=== PATIENT | female | born 1975 | race Caucasian/White ===

== ENCOUNTER → 2020-12-17 10:21 | Outpatient (CLI) | payer OTHER, SELFPAY ==
--- NOTE | 2020-12-17 10:21 | US_ITS ---
PROCEDURE: US TRANSVAGINAL CLINICAL INDICATION: DUB COMPARISON: No exams were available for comparison FINDINGS: UTERUS: 11cm x 6cmx 5cm with a combined endometrial thickness of 16.8mm. There are numerous prominent nabothian cysts. The endometrium is thickened at 1.7 cm. Fibroid projects off the posterior aspect the fundus of the uterus measuring 3 cm. LEFT OVARY: [id number] with a volume of 37.2ml. There are 2 left ovarian cyst measuring 3.7 x 2.7 cm and 2.4 x 2 cm. The largest of the cyst has a small lateral septation on the right RIGHT OVARY: [id number] with a volume of 3.8ml. No cul-de-sac fluid. IMPRESSION: Bulky uterus with uterine fibroid and thickened endometrium with multiple nabothian cyst. Enlarged left ovary with 2 cysts as described above. Consider 8 week follow-up to confirm resolution or stability. Dictated by: Indra Rendon MD 12/17/2020 16:46 Indra Rendon MD in [place] 12/17/2020 16:46
== END ==
PROVIDERS: PCP Obstetrics & Gynecology; Visit Provider Obstetrics & Gynecology
DX: N93.8 Other specified abnormal uterine and vaginal bleeding (principal)
CPT/HCPCS: 76830

== ENCOUNTER → 2021-01-26 07:22 | Outpatient (CLI) | payer OTHER, SELFPAY ==
[2021-01-26 07:39] LABS: Basophils # 0.1 K/mm3 (0-0.2); Basophils % 0.9 % (0.1-2.0); Eosinophils # 0.1 K/mm3 (0.0-0.4); Eosinophils % 1.8 % (0.1-12.0); Hematocrit 32.5 % (37.0-47.0); Hemoglobin 9.3 g/dL (12.2-16.2); Lymphocytes # 2.1 K/mm3 (0.7-4.5); Lymphocytes % 27.1 % (10-50); Mean Corpuscular HGB Conc 28.8 g/dL (31.8-35.4); Mean Corpuscular Hemoglobin 21.2 pg (27.0-31.2); Mean Corpuscular Volume 73.7 fl (81-99); Mean Platelet Volume 7.9 fl (7.4-10.4); Monocytes # 0.4 K/mm3 (0.1-1.0); Monocytes % 5.5 % (1.7-9.3); Neutrophils % 64.7 % (37.0-80.0); Platelet Count 444 K/mm3 (142-424); Red Blood Count 4.41 M/mm3 (4.20-5.40); Red Cell Distribution Width 15.8 % (11.5-17.5); White Blood Count 7.7 K/mm3 (4.8-10.8)
[2021-01-26 07:43] LABS: Urine Pregnancy, HCG Qual. Negative (Negative)
[2021-01-26 08:32] LABS: Chloride 102 mmol/L (98-107)
[2021-01-26 08:33] LABS: Potassium 4.1 mmoL/L (3.5-5.1); Sodium 137 mmol/L (136-145)
[2021-01-26 08:35] LABS: Alanine Aminotransferase 46 U/L (12-78); Alkaline Phosphatase 76 U/L (38-126); Anion Gap 14.1 mEq/L (5-15); Aspartate Amino Transferase 50 U/L (14-36); Bilirubin,Total 0.8 mg/dl (0.2-1.3); Blood Urea Nitrogen 11 mg/dl (7-17); Carbon Dioxide 25 mmol/L (22.0-30.0); Estimated Glomerular Filt Rate 107 ml/min (>60); GFR (African American) 130 ML/MIN (>60)
[2021-01-26 08:36] LABS: Albumin/Globulin Ratio 1.4 (1.1-1.8); Globulin 2.9 g/dL (1.3-3.2); Glucose 101 mg/dl (74-100); Total Protein,Serum 6.9 g/dl (6.3-8.2)
== END ==
PROVIDERS: Visit Provider Obstetrics & Gynecology
DX: Z01.812 Encounter for preprocedural laboratory examination (principal); Z11.52 Encounter for screening for COVID-19; R93.89 Abnormal findings on diagnostic imaging of other specified body structures
CPT/HCPCS: 36415; 80053; 81025; 85025; C9803; U0003; U0005

== ENCOUNTER 2021-01-27 11:09 | Inpatient (IN) | payer OTHER, SELFPAY ==
[2021-01-26 15:25] VITALS: BMI 35.5
[2021-01-27] VITALS (22 sets, daily range): BP systolic 110–143; BP diastolic 61–83; PULSE 66–102; RESP 16–20; TEMP 6.1–43; O2SAT 93–100
--- NOTE | 2021-01-27 06:57 | HMH.ANESCL ---
[facility] Anesthesia Checklist - Patient Identification Patient Identification: Arm Band - Structural Data Admitted From: Home Planned Operative Procedure/s: VICIKE with BSO Consent for Planned Operative Procedure(s) Verified: Yes - NPO Status Verified Time NPO: 00:00 - Additional verifications Anesthesia Reactions: Yes (vomitting) Hx Blood Transfusions: No Blood Transfusion Reaction: No - Airway Assessment C-Spine Mobility Assessed: Yes TMJ Mobility Assessed: Yes Dentition: Good Dentition - Neurological Assessment Level of Consciousness: Awake Hx Seizures: No Numbness or tingling in extremities: No - Anesthesia Plan Anesthesia Risk discussed: Yes Anesthesia Plan: Verified ASA Class: II Anesthesia Type: General [facility] History I have reviewed the patient's past medical history: Yes Medical History: Reports:: Gastroesophageal Reflux Disease(GERD) Denies:: Cancer, Diabetes Mellitus Type 1, Diabetes Mellitus Type 2, Internal Pacemaker, MRSA, Seizures *Have you ever received a pneumonia vaccine?: No *Have you received a flu vaccine this season?: Yes (2019) Other Medical History: Denies: Blood Transfusion Reaction Anesthesia experience/problems:: N/V Other Surgeries: Yes: Tubal Ligation. No: Pacemaker Amputation: No Fractures: No - *Social History Last grade of school completed: Some college Smoking Status: Never smoker Alcohol Intake: never Substance Use Type: denies use *Occupational Status:: employed Housing: house Household Members: spouse *Travel in the last 8 weeks: None Family Hx:: Cancer, Heart Attack, Diabetes, Hypertension, Thyroid Disorder
--- NOTE | 2021-01-27 07:48 | HMH.HP ---
*Admission Date: 01/27/21 *Chief complaint: scheduled hysterectomy *History of present illness: 45 yo , s/p tubal ligation dysfunctional, heavy and prolonged bleeding LMP 10/17-11/23 pelvic ultrasound 12/17/20: uterus bulky, [id number] ES 17mm posterior pedunculated fundal fibroid 3cm L ovary 5x4x3.5cm, 3.7x2.7cm cyst, 2.4x2cm cyst R ovary [id number] No free fluid Desires definitive surgical management of menorrhagia and uterine fibroid with hysterectomy Declines conservative medical management counseled for ovarian preservation if ovaries appear normal [facility] History I have reviewed the patient's past medical history: Yes Medical History: Reports:: Gastroesophageal Reflux Disease(GERD) Denies:: Cancer, Diabetes Mellitus Type 1, Diabetes Mellitus Type 2, Internal Pacemaker, MRSA, Seizures *Have you ever received a pneumonia vaccine?: No *Have you received a flu vaccine this season?: Yes (2019) Other Medical History: Reports: Anemia. Denies: Blood Transfusion Reaction Anesthesia experience/problems:: N/V Other Surgeries: Yes: Tubal Ligation. No: Pacemaker Amputation: No Fractures: No - *Social History Last grade of school completed: Some college Smoking Status: Never smoker Alcohol Intake: never Substance Use Type: denies use *Occupational Status:: employed Housing: house Household Members: spouse *Travel in the last 8 weeks: None Family Hx:: Cancer, Heart Attack, Diabetes, Hypertension, Thyroid Disorder Review of Systems - Review of Systems Review of systems:: pertinent systems reviewed and negative unless documented below - *Genitourinary Reports abnormal vaginal bleeding, Reports heavy periods, Reports pelvic pain Meds Home Medications Medication Instructions Recorded Confirmed Type Famotidine 10 mg PO DAILY 01/27/21 01/27/21 History Loratadine [Claritin] 10 mg PO DAILY 01/27/21 01/27/21 History Allergies Allergy/AdvReac Type Severity Reaction Status Date / Time No Known Allergies Allergy Verified 01/26/21 10:21 Exam Vital signs and Labs for Last 24 Hours: Temp Pulse Resp BP Pulse Ox 98.4 F 102 H 20 143/83 H 97 01/27/21 06:19 01/27/21 06:19 01/27/21 06:19 01/27/21 06:19 01/27/21 06:19 I & O for Last 24 hours: Intake & Output 01/24/21 01/25/21 01/26/21 01/27/21 11:59 11:59 11:59 11:59 Weight 227 lb - Constitutional no acute distress - *Routine HEENT Exam Head: Present: normocephalic Eye: Absent: scleral injection ENT: Present: mucous membranes moist - *Routine Neck Exam Present: supple. Absent: lymphadenopathy - *Routine Respiratory Exam Present: CTA bilaterally - *Routine Cardiovascular Exam Present: RRR - *Routine Abdominal Exam Present: soft, normoactive bowel sounds. Absent: tenderness - *Routine Rectal Exam Rectal:: deferred - *Routine Genitalia Exam Genitalia:: normal female - *Routine Extremities Exam Absent: cyanosis, clubbing, edema - *Routine Skin Exam Present: warm. Absent: rash - *Routine Neurological Exam Present: alert, oriented X3 Assessment and Plan (1) Heavy menstrual bleeding Status: Acute Category: Medical Code(s): N92.0 - Excessive and frequent menstruation with regular cycle (2) DUB (dysfunctional uterine bleeding) Status: Acute Category: Medical Code(s): N93.8 - Other specified abnormal uterine and vaginal bleeding (3) Bulky or enlarged uterus Status: Acute Category: Medical Code(s): N85.2 - Hypertrophy of uterus (4) Uterine fibroid Status: Acute Category: Medical Code(s): D25.9 - Leiomyoma of uterus, unspecified (5) Thickened endometrium Status: Acute Category: Medical Code(s): R93.89 - Abnormal findings on diagnostic imaging of other specified body structures (6) Anemia due to chronic blood loss Status: Acute Category: Medical Code(s): D50.0 - Iron deficiency anemia secondary to blood loss (chronic) (7) History of tubal ligation Status: Acute Category:
--- NOTE | 2021-01-27 10:27 | HMH.ANESI ---
[facility] Anesthesia Record Part I Intake, IV Amount: 1,800 Estimated blood loss (mL): 200 Urine output (mL): 300 Blood Pressure: 122/64 SaO2: 96 Pulse Rate: 66 Respiratory Rate: 16 Temperature: 97.7 F Patient is:: Drowsy, Stable Stable to PACU at:: 10:25
--- NOTE | 2021-01-27 10:54 | PC.NURSE ---
1049 Report received from Dina Lewis RN in PACU.
--- NOTE | 2021-01-27 11:20 | HMH.OPNOTE ---
Date of procedure: 01/27/21 Pre-op Diagnosis:: 1. Heavy Menstrual Bleeding 2. Dysfunctional Uterine Bleeding 3. Pelvic Pain 4. Enlarged/bulky uterus 5. Uterine Fibroids 6. Anemia secondary to chronic blood loss Post-op Diagnosis:: 1. Heavy Menstrual Bleeding 2. Dysfunctional Uterine Bleeding 3. Pelvic Pain 4. Enlarged/bulky uterus 5. Uterine Fibroids 6. Anemia secondary to chronic blood loss 7. Pelvic adhesions Procedure performed:: Abdominal supracervical hysterectomy Lysis of adhesions Surgeon:: Sarina Batista MD Air Pollution Control Engineer(s):: Sylvie Brower LEAD EMBEDDED SOFTWARE ENGINEER:: Chester Gonzáles Anesthesia: GETA Estimated blood loss (mL): 200 Operative findings:: grossly enlarged fibroid uterus normal appearing ovaries bilaterally normal appearing fallopian tubes bilaterally moderate dense pelvic adhesions Operative note:: The patient was taken to the operating room and general anesthesia was administered without difficulty. She was prepped and draped in the supine position. A Pfannenstiel skin incision was made approximately 2 cm above the pubic symphysis with a scalpel and carried down to the underlying layer of fascia. The fascia was incised in the midline and extended laterally sharply. The rectus muscles were sharply dissected off the fascia and in the midline. The peritoneum was turned and sharply, with good visualization of the underlying structures. The peritoneal incision was extended bluntly. A survey of the patient's pelvis and abdomen revealed a grossly enlarged fibroid uterus with pelvic adhesions attaching the small intestine to the posterior uterus. Moderate vesicouterine adhesions were also noted. The bowel could not be packed initially because of the uterine adhesions. Sharp and blunt dissection was carried out until the bowel was liberated from the posterior uterus. At this time, the patient was placed in Trendelenburg and a [place] retractor was placed in the abdomen; the bowel was packed with moist laparotomy sponges. A double tooth tenaculum was placed on the uterine fundus and the uterus was elevated out of the pelvis. No fibroids or other visible uterine lesions were noted. The round ligaments were identified and transected and suture-ligated. The anterior lip of the broad ligament was dissected medially on both sides and the bladder flap was created digitally. The posterior leaf of the broad ligament was dissected until the ureters were able to be identified on either side and noted to be free of the forthcoming adnexal pedicles. Infundibulopelvic ligaments were doubly clamped transected and suture ligated on either side, with excellent hemostasis noted. The uterine arteries were skeletonized on either side, and were clamped, transected and suture ligated with excellent hemostasis. The bladder flap was further bluntly dissected off the lower uterine segment with excellent hemostasis and without injury to the bladder. The cardinal and uterosacral ligaments were clamped transected and suture ligated on both sides, but dense bowel adhesions to the posterior lower uterus/cervix precluded safe removal of the cervix, and a decision was made to proceed with a supracervical hysterectomy. The uterus was amputated below the internal cervical os with cautery and the specimen sent for pathology. The pelvis was copiously irrigated with sterile water. The cervical stump was oversewn with 0-vicryl sutures, with excellent hemostasis. All pedicles were reexamined and remained hemostatic. All instruments were removed from the patient's abdomen. The peritoneum was closed with 2-0 Vicryl in a running fashion. The fascia was closed with 0 Vicryl in a running fashion. The subcutaneous fat was closed with 2-0 vicryl. The skin was closed with 2-0 stratafix. The patient tolerated the procedure well; sponge/lap/needle and instrument counts were correct ?2. She was taken to the recovery room awake in stable condition. Estimated bloo
--- NOTE | 2021-01-27 11:29 | PC.NURSE ---
1120 Pt more drowsy at VS check. SaO2 low 90s on room air. 2L NC initiated with SaO2 95-97%.
[2021-01-27 15:05] LABS: Microscopic,Cath URINE MICROSCOPIC (MICROSCOPIC)
[2021-01-27 15:24] LABS: Appearance,Urine/Cath CLEAR (Clear); Bilirubin,Cath Negative (Negative); Blood, Urine/Cath Negative (Negative); Color,Urine/Cath YELLOW (Yellow); Glucose,Urine/Cath (UA) Negative (Negative); Ketones,Urine/Cath Negative (Negative); Leukocyte Esterase,Cath Negative (Negative); Nitrate,Cath Negative (Negative); Protein,Urine/Cath Negative (Negative); Urobilinogen,Cath 0.2 EU/dl (0.2)
[2021-01-27 15:28] LABS: Hematocrit 28.3 % (37.0-47.0)
[2021-01-27 15:44] LABS: Bacteria,Urine/Cath TRACE /lpf
--- NOTE | 2021-01-27 16:18 | P.PN_ITS ---
[facility] Anesthesia Record Part II Discharge Time: 10:55 Destination: Obstetric PACU nurse assessment reviewed?: Yes Patient Condition:: Good Anesthesia Complications:: None Swallowing reflex intact?: Yes Cyanosis?: No Blood Pressure: 119/80 Pulse Rate: 94 Temperature: 98.2 F Mental Status: Alert & Oriented Pain level:: 5 Nausea and/or vomitting:: None Intake, IV Amount: 0
--- NOTE | 2021-01-27 16:36 | PC.NURSE ---
1605 RN reassessment completed. Pt has rested in intervals this shift. Pain is well controlled, pt has not requested any PRN medications. She is aware of pain management options. She did receive a TAP block. A & O X4, independent with ADLs. VSS. 20 G IV infusing in right hand without any difficulty. Abd soft and nontender with BS active in all quads. Tolerating clear liquids well, advanced to regular diet. Pt denies any flatus this shift, no BM. F/C patent and draining clear, yellow urine at bedside. Approx 1000 ml UOP noted. Pt requests to have F/C removed this evening, will notify MD. LTV incision covered with T/T dressing, C/D/I. Thigh high IPCS in place, tolerated well by pt. Pt instructed on IS use and able to use without any difficulty. Spouse at bedside, bed locked and in lowest position with side rails up x2. Call light within reach. Will continue to monitor.
--- NOTE | 2021-01-27 18:50 | PC.NURSE ---
Assisted pt to BR to void, tolerated activity well. Able to void approx 50 ML.
[2021-01-28] VITALS (9 sets, daily range): BP systolic 104–130; BP diastolic 62–70; PULSE 74–92; RESP 16–20; TEMP 36.7–36.9; O2SAT 97–100
--- NOTE | 2021-01-28 04:00 | PC.NURSE ---
PT RESTED COMFORTABLY THIS SHIFT. VSS. A&O X4. IV INFUSING WELL IN RIGHT HAND. PT AMBULATED TO BATHROOM WELL WITH STANDBY ASSIST. PAIN WELL CONTROLLED WITH SCHEDULED MEDICATIONS. SCUDS IN PLACE TO BLE. LUNGS CTAB AND BOWEL COUNDS PRESENT. PT VOIDED 700ML THIS SHIFT. CALL LIGHT IN REACH.
--- NOTE | 2021-01-28 06:55 | PC.NURSE ---
REPORT TO Bere LAWSON RN
[2021-01-28 07:49] LABS: Basophils % 0.3 % (0.1-2.0); Eosinophils % 0.3 % (0.1-12.0); Hematocrit 25.8 % (37.0-47.0); Hemoglobin 7.3 g/dL (12.2-16.2); Lymphocytes # 1.8 K/mm3 (0.7-4.5); Lymphocytes % 19.6 % (10-50); Mean Corpuscular HGB Conc 28.4 g/dL (31.8-35.4); Mean Corpuscular Hemoglobin 21.2 pg (27.0-31.2); Mean Corpuscular Volume 74.6 fl (81-99); Mean Platelet Volume 7.5 fl (7.4-10.4); Monocytes # 0.6 K/mm3 (0.1-1.0); Monocytes % 6.3 % (1.7-9.3); Neutrophils # 6.7 K/mm3 (1.8-7.8); Neutrophils % 73.4 % (37.0-80.0); Platelet Count 353 K/mm3 (142-424); Red Blood Count 3.46 M/mm3 (4.20-5.40); Red Cell Distribution Width 15.6 % (11.5-17.5); White Blood Count 9.1 K/mm3 (4.8-10.8)
[2021-01-28 07:52] LABS: Anion Gap 8.8 mEq/L (5-15); Blood Urea Nitrogen 8 mg/dl (7-17); Calcium 8.6 mg/dl (8.4-10.2); Carbon Dioxide 27 mmol/L (22.0-30.0); Chloride 105 mmol/L (98-107); Creatinine Clearance Estimated 188 mL/min (50-200); Estimated Glomerular Filt Rate 107 ml/min (>60); GFR (African American) 130 ML/MIN (>60); Glucose 105 mg/dl (74-100); Potassium 3.8 mmoL/L (3.5-5.1); Sodium 137 mmol/L (136-145)
--- NOTE | 2021-01-28 09:34 | HMH.PHAVTE ---
[facility] Pharmacy VTE Monitoring - Patient Demographics Admission date: 01/28/21 Report Date: 01/28/21 Time: 09:34 Allergies/Adverse Reactions: Patient Allergies No Known Allergies Allergy (Verified 01/26/21 10:21) Height: 1.7 m Weight: 102.965 kg Patient Problems: Current Active Problems Bulky or enlarged uterus (Acute) Heavy menstrual bleeding (Acute) Uterine fibroid (Acute) Thickened endometrium (Acute) Anemia due to chronic blood loss (Acute) History of tubal ligation (Acute) DUB (dysfunctional uterine bleeding) (Acute) - VTE Risk Labs: VTE Related Lab Results Hgb 7.3 g/dL (12.2-16.2) L 01/28/21 06:00 Hct 25.8 % (37.0-47.0) L 01/28/21 06:00 Plt Count 353 K/mm3 (142-424) 01/28/21 06:00 BUN 8 mg/dl (7-17) D 01/28/21 07:17 Creatinine 0.60 mg/dl (0.52-1.04) 01/28/21 07:17 Estimated Creat Clear 188 mL/min (50-200) 01/28/21 07:17 Was VTE Risk Assessment Performed: Yes VTE Score: 2 VTE Risk Level: Very Low Risk Clinical Trial Participant: No - Prophylaxis VTE Prophylaxis Ordered?: Yes Types of VTE Prophylaxis: IPCS Thigh High (POST OP) Location of Applied Device: Bilateral Lower Extremeties
--- NOTE | 2021-01-28 13:50 | PC.NURSE ---
DR. LOPEZ AT BEDSIDE.
--- NOTE | 2021-01-28 14:07 | HMH.ACPN2 ---
Internal Medicine - PN: Subj *Date: 01/28/21 *Time: 14:07 Interval history: POD #1 abdominal supracervical hysterectomy no unusual complaints asymptomatic with [id number] anemia; Hgb 7.3 this am discussed possible transfusion but patient declines as she is asymptomatic with anemia tolerating regular diet ambulating and voiding without difficulty Exam Vital signs and Labs for Last 24 Hours: Temp Pulse Resp BP Pulse Ox 98.4 F 92 H 20 111/67 98 01/28/21 08:00 01/28/21 08:00 01/28/21 08:00 01/28/21 08:00 01/28/21 08:25 Laboratory Results - last 24 hr 01/27/21 08:10: Urine Color Yellow, Urine Appearance Clear, Urine pH 7.0, Ur Specific [place] 1.010, Urine Protein Negative, Urine Glucose (UA) Negative, Urine Ketones Negative, Urine Blood Negative, Urine Nitrate Negative, Urine Bilirubin Negative, Urine Urobilinogen 0.2, Ur Leukocyte Esterase Negative, Urine RBC None, Urine WBC 3-5, Ur Squamous Epith Cells None, Urine Bacteria Trace 01/27/21 14:17: Hgb 8.0 L, Hct 28.3 L 01/28/21 06:00: WBC 9.1, RBC 3.46 L, Hgb 7.3 L, Hct 25.8 L, MCV 74.6 L, MCH 21.2 L, MCHC 28.4 L, RDW 15.6, Plt Count 353, MPV 7.5, Neut % (Auto) 73.4, Lymph % (Auto) 19.6, [place] % (Auto) 6.3, Eos % (Auto) 0.3, Baso % (Auto) 0.3, Neut # (Auto) 6.7, Lymph # (Auto) 1.8, [place] # (Auto) 0.6, Eos # (Auto) 0.0, Baso # (Auto) 0.0 01/28/21 07:17: Sodium 137, Potassium 3.8, Chloride 105, Carbon Dioxide 27, Anion Gap 8.8, BUN 8 D, Creatinine 0.60, Estimated Creat Clear 188, Estimated GFR 107, Est GFR ( Amer) 130, Glucose 105 H, Calcium 8.6 I & O for Last 24 hours: Intake & Output 01/26/21 01/27/21 01/28/21 09/30/21 11:59 11:59 11:59 11:59 Intake Total 1800 / 1800 800 / 800 Output Total 300 / 300 1500 / 1500 Balance 1500 / 1500 -700 / -700 Weight 227 lb Narrative: CONSTITUTIONAL: no acute distress HEENT: mucous membranes moist PULMONARY: breathing unlabored without audible wheezes CV: no tachycardia or visible JVD; normal LE peripheral pulses ABD: soft, ND; appropriately tender but no rebound/guarding SKIN: incision well approximated with no drainage, erythema or induration EXT: no edema LEs NEURO: alert/oriented, no altered mental status PSYCH: appropriate mood and demeanor Assessment and Plan (1) Heavy menstrual bleeding Status: Acute Category: Medical Code(s): N92.0 - Excessive and frequent menstruation with regular cycle (2) DUB (dysfunctional uterine bleeding) Status: Acute Category: Medical Code(s): N93.8 - Other specified abnormal uterine and vaginal bleeding (3) Bulky or enlarged uterus Status: Acute Category: Medical Code(s): N85.2 - Hypertrophy of uterus (4) Uterine fibroid Status: Acute Category: Medical Code(s): D25.9 - Leiomyoma of uterus, unspecified (5) Thickened endometrium Status: Acute Category: Medical Code(s): R93.89 - Abnormal findings on diagnostic imaging of other specified body structures (6) Anemia due to chronic blood loss Status: Acute Category: Medical Code(s): D50.0 - Iron deficiency anemia secondary to blood loss (chronic) (7) History of tubal ligation Status: Acute Category: Surgical Code(s): Z98.51 - Tubal ligation status - Assessment and plan all Dx Assessment and Plan for all problems:: routine postop care po [id number] anticipate discharge home tomorrow
--- NOTE | 2021-01-28 15:40 | PC.NURSE ---
PT UP TO SHOWER AT THIS TIME. BED LINENS CHANGED
--- NOTE | 2021-01-28 16:30 | PC.NURSE ---
NO CHANGE FROM PREVIOUS ASSESSMENT. PT A/OX4. REPORTS INTERMITTENT PAIN- RATES / NOW R/T RECENT SHOWER. BOWEL SOUNDS ACTIVE X4 AND LUNGS CTA. REPORTS PASSING GAS ,NO BM. IV SALINE LOCKED. SCUDS IN PLACE. LTV DRESSING REMOVED AND CLEANSED WOUND WITH 1/2 NS AND 1/2 PEROXIDE. WOUND EDUCATION PROVIDED. PT TOLERATED WELL. PULSES 2+ AND NO EDEMA NOTED. NO NEEDS. CALL LIGHT WITHIN REACH
[2021-01-29] VITALS: BP 128/75; PULSE 83; RESP 18; TEMP 36.9; O2SAT 99
[2021-01-29 04:00] VITALS: BP 130/74; PULSE 78; RESP 18; TEMP 36.8; O2SAT 99
--- NOTE | 2021-01-29 05:08 | PC.NURSE ---
LATE ENTRY: 0430 PT HAS RESTED WELL THIS SHIFT WITH NO C/O PAIN. PT AMBULATES INDEPENDENTLY IN ROOM WITHOUT DIFFICULTY. NO ACUTE CHANGES FROM PREVIOUS ASSESSMENT. LOW TRANSVERSE INCISION REMAINS CDI AND DRY COLOR MIXER. PT EDUCATION REINFORCED R/T INCISIONAL CARE. VS REMAIN STABLE CHARTED. CALL LIGHT WITHIN REACH. WILL CONTINUE TO MONITOR.
[2021-01-29 08:00] VITALS: BP 125/63; PULSE 89; RESP 17; TEMP 36.6; O2SAT 95
--- NOTE | 2021-01-29 10:14 | HMH.DCSUM ---
General - General Admission date:: 01/27/21 Discharge date: 01/29/21 HPI HPI: 45 yo , s/p tubal ligation dysfunctional, heavy and prolonged bleeding LMP 10/17-11/23 pelvic ultrasound 12/17/20: uterus bulky, [id number] ES 17mm posterior pedunculated fundal fibroid 3cm L ovary 5x4x3.5cm, 3.7x2.7cm cyst, 2.4x2cm cyst R ovary [id number] No free fluid Desires definitive surgical management of menorrhagia and uterine fibroid with hysterectomy Declines conservative medical management counseled for ovarian preservation if ovaries appear normal Hospital Course Hospital Course: admitted for postop recovery after abdominal supracervical hysterectomy with JULIANA postop course uneventful asymptomatic with [id number] anemia tolerating regular diet ambulating and voiding without difficulty discharged home in stable condition on POD #2 Objective Vital signs: Temp Pulse Resp BP Pulse Ox 97.9 F 89 17 125/63 95 01/29/21 08:00 01/29/21 08:00 01/29/21 08:00 01/29/21 08:00 01/29/21 08:00 Narrative: CONSTITUTIONAL: no acute distress HEENT: mucous membranes moist PULMONARY: breathing unlabored without audible wheezes CV: no tachycardia or visible JVD; normal LE peripheral pulses ABD: soft, ND; appropriately tender but no rebound/guarding SKIN: incision well approximated with no drainage, erythema or induration EXT: no edema LEs NEURO: alert/oriented, no altered mental status PSYCH: appropriate mood and demeanor DS: Diagnosis - Discharge Diagnosis (1) Heavy menstrual bleeding Status: Acute (2) DUB (dysfunctional uterine bleeding) Status: Acute (3) Bulky or enlarged uterus Status: Acute (4) Uterine fibroid Status: Acute (5) Thickened endometrium Status: Acute (6) Anemia due to chronic blood loss Status: Acute (7) History of tubal ligation Status: Acute (8) History of hysterectomy, supracervical Status: Acute Discharge Plan - Patient Discharge Instructions ACTIVITY: Continue current activity DIET: regular diet Additional Instructions: No heavy lifting, no strenuous activity and nothing in the vagina for 6 weeks. No tub baths for 6 weeks. Patient Instructions: DI for Hysterectomy, DI for Surgical Site Infection, DI for Postoperative Pain, Preventing the Spread of Coronavirus Discharge Instructions - Follow up Plan Follow up with: Sarina Batista MD [Primary Care Provider] - 02/12/21 2:15 pm Disposition: Home, Self-Care Condition at discharge:: Stable Home Medications: Home Medications Medication Instructions Recorded Confirmed Type Famotidine 10 mg PO DAILY 01/27/21 01/27/21 History Loratadine [Claritin] 10 mg PO DAILY 01/27/21 01/27/21 History Ibuprofen [Motrin 400mg 800 mg PO Q6HP PRN #30 tab 01/29/21 Rx tablet] Oxycodone HCl [OxyIR 5mg tablet] 5 mg PO Q6HP PRN #24 tablet 01/29/21 Rx Prescriptions/Medication Reconciliation: New Ibuprofen [Motrin 400mg tablet] 800 mg PO Q6HP PRN #30 tab PRN Reason: Mild Pain Oxycodone HCl [OxyIR 5mg tablet] 5 mg PO Q6HP PRN #24 tablet PRN Reason: Moderate To Severe Pain Continued Famotidine 10 mg PO DAILY Loratadine [Claritin] 10 mg PO DAILY - Problem Reconciliation Problems Reviewed?: Yes
== END 2021-01-29 10:25 | disposition home or self-care (01) | DRG 743 ==
LOC: OB 11:13
PROVIDERS: Admitting Provider Obstetrics & Gynecology; PCP Obstetrics & Gynecology; Visit Provider Obstetrics & Gynecology
PROC: 0UT90ZZ Resection of Uterus, Open Approach (ICD-10-PCS; CPT 58150; principal; 2021-01-27 07:30)
DX: D25.9 Leiomyoma of uterus, unspecified (principal); D50.0 Iron deficiency anemia secondary to blood loss (chronic); N83.209 Unspecified ovarian cyst, unspecified side; K21.9 Gastro-esophageal reflux disease without esophagitis
CPT/HCPCS: 58180; 36415; 80048; 81001; 85014; 85018; 85025; 86850; 94761; 96374; C9290; G0283; J2405; J2710

== ENCOUNTER → 2022-01-28 16:47 | Outpatient (CLI) | payer OTHER, SELFPAY ==
[2022-01-28 17:25] LABS: Influenza A, PCR Not Detected (NotDetected); Influenza B, PCR Not Detected (NotDetected)
[2022-01-28 18:18] LABS: Coronavirus 19, PCR Detected (NotDetected)
== END ==
PROVIDERS: PCP Internal Medicine Adolescent Medicine; Visit Provider Internal Medicine Adolescent Medicine
DX: U07.1 COVID-19 (principal); R50.9 Fever, unspecified
CPT/HCPCS: C9803; U0003; U0005

== ENCOUNTER 2023-10-18 13:34 | Outpatient (CLI) | payer OTHER, SELFPAY ==
[2023-10-18 13:31] LABS: Microscopic, Urine URINE MICROSCOPIC (MICROSCOPIC)
[2023-10-18 13:43] LABS: Appearance,Urine CLEAR (Clear); Bilirubin,Urine Negative (Negative); Blood, Urine Negative (Negative); Color,Urine YELLOW (Yellow); Glucose,Urine (UA) Negative (Negative); Ketones,Urine Negative (Negative); Leukocyte Esterase,Urine Negative (Negative); Nitrate,Urine Negative (Negative); Protein,Urine Negative (Negative); Specific Gravity, Urine 1.025 (1.005-1.030); Urobilinogen,Urine 0.2 EU/dl (0.2)
[2023-10-18 13:48] LABS: Total Protein,Urine Random < 5.0 mg/dL (0.0-12.0)
[2023-10-18 13:57] LABS: Basophils # 0.1 K/mm3 (0-0.2); Basophils % 1.1 % (0.1-2.0); Eosinophils # 0.1 K/mm3 (0.0-0.4); Eosinophils % 2.1 % (0.1-12.0); Hematocrit 44.2 % (37.0-47.0); Hemoglobin 14.3 g/dL (12.2-16.2); Lymphocytes # 1.4 K/mm3 (0.7-4.5); Lymphocytes % 26.3 % (10-50); Mean Corpuscular HGB Conc 32.3 g/dL (31.8-35.4); Mean Corpuscular Hemoglobin 29.2 pg (27.0-31.2); Mean Corpuscular Volume 90.2 fl (81-99); Mean Platelet Volume 9.1 fl (7.4-10.4); Monocytes # 0.3 K/mm3 (0.1-1.0); Monocytes % 4.7 % (1.7-9.3); Neutrophils # 3.5 K/mm3 (1.8-7.8); Neutrophils % 65.8 % (37.0-80.0); Platelet Count 284 K/mm3 (142-424); Red Cell Distribution Width 14.1 % (11.5-17.5); White Blood Count 5.3 K/mm3 (4.8-10.8)
[2023-10-18 14:01] LABS: Hemoglobin A1C 5.3 % (4.0-6.0)
[2023-10-18 14:15] LABS: Alanine Aminotransferase 78 U/L (12-78); Albumin Level 4.4 g/dl (3.5-5.0); Albumin/Globulin Ratio 1.4 (1.1-1.8); Alkaline Phosphatase 107 U/L (38-126); Anion Gap 15.8 mEq/L (5-15); Aspartate Amino Transferase 88 U/L (14-36); Bilirubin,Total 1.1 mg/dl (0.2-1.3); Blood Urea Nitrogen 15 mg/dl (7-17); Calcium 9.3 mg/dl (8.4-10.2); Carbon Dioxide 26 mmol/L (22.0-30.0); Chloride 100 mmol/L (98-107); Chol/HDL Ratio 5.2 (1-3.5); Cholesterol 198 mg/dl (140-200); Estimated Glomerular Filt Rate 89 ml/min (>60); GFR (African American) 107 ML/MIN (>60); Globulin 3.2 g/dL (1.3-3.2); Glucose 94 mg/dl (74-100); HDL Cholesterol 38 mg/dl (40-60); Potassium 4.8 mmoL/L (3.5-5.1); Sodium 137 mmol/L (136-145); Total Protein,Serum 7.6 g/dl (6.3-8.2); Triglycerides 136 mg/dl (30-150); VLDL Cholesterol 27 mg/dL (0-40)
[2023-10-18 14:27] LABS: Direct LDL Cholesterol 120.56 mg/dL (100-129)
[2023-10-18 14:33] LABS: Free T4 (Free Thyroxine) 0.97 ng/dl (0.78-2.19)
[2023-10-18 14:34] LABS: 25-OH Vitamin D, Total 20.8 ng/mL (30-100)
[2023-10-18 14:47] LABS: Thyroid Stimulating Hormone 2.46 uIU/mL (0.465-4.68)
[2023-10-18 15:06] LABS: Vitamin B12 288 pg/mL (239-931)
[2023-10-18 16:55] LABS: Iron 123 ug/dL (37-170)
[2023-10-18 17:06] LABS: Total Iron Binding Capacity 441 ug/dL (265-497)
[2023-10-18 17:31] LABS: Ferritin 35.9 ng/ml (6.24-137)
[2023-10-19 14:13] LABS: HIV (1&2) Antibody Rapid NONREACTIVE
[2023-10-20 06:12] LABS: HCV Ab Non Reactive (Non Reactive)
== END 2023-10-18 23:59 | disposition home or self-care (01) ==
LOC: LAB.DROPOF 13:34
PROVIDERS: PCP Nurse Practitioner Family; Visit Provider Nurse Practitioner Family
DX: I10 Essential (primary) hypertension (principal); R53.83 Other fatigue; Z76.89 Persons encountering health services in other specified circumstances; Z13.1 Encounter for screening for diabetes mellitus; E66.9 Obesity, unspecified; Z11.59 Encounter for screening for other viral diseases; Z13.220 Encounter for screening for lipoid disorders; Z11.4 Encounter for screening for human immunodeficiency virus [HIV]; Z68.41 Body mass index [BMI] 40.0-44.9, adult
CPT/HCPCS: 80050; 80053; 80061; 81001; 82306; 82607; 82728; 83036; 83540; 83550; 84156; 84439; 84443; 85025; 87086; 87088; 87186

== ENCOUNTER 2024-05-28 11:09 | Outpatient (CLI) | payer OTHER, SELFPAY ==
[2024-05-28 11:48] LABS: Alanine Aminotransferase 54 U/L (12-78); Albumin Level 4.6 g/dl (3.5-5.0); Albumin/Globulin Ratio 1.7 (1.1-1.8); Alkaline Phosphatase 87 U/L (38-126); Anion Gap 12.5 mEq/L (5-15); Aspartate Amino Transferase 55 U/L (14-36); Blood Urea Nitrogen 13 mg/dl (7-17); Calcium 9.7 mg/dl (8.4-10.2); Carbon Dioxide 26 mmol/L (22.0-30.0); Chloride 101 mmol/L (98-107); Cholesterol 186 mg/dl (140-200); Estimated Glomerular Filt Rate 88 ml/min (>60); GFR (African American) 107 ML/MIN (>60); Globulin 2.7 g/dL (1.3-3.2); Glucose 149 mg/dl (74-100); HDL Cholesterol 31 mg/dl (40-60); Potassium 4.5 mmoL/L (3.5-5.1); Sodium 135 mmol/L (136-145); Total Protein,Serum 7.3 g/dl (6.3-8.2); Triglycerides 175 mg/dl (30-150); VLDL Cholesterol 35 mg/dL (0-40)
[2024-05-28 13:16] LABS: Direct LDL Cholesterol 126.82 mg/dL (100-129)
[2024-05-28 13:46] LABS: 25-OH Vitamin D, Total 26.6 ng/mL (30-100)
[2024-05-28 18:07] LABS: Vitamin B12 793 pg/mL (239-931)
== END 2024-05-28 23:59 | disposition home or self-care (01) ==
LOC: LAB.DROPOF 11:09
PROVIDERS: PCP Nurse Practitioner Family; Visit Provider Nurse Practitioner Family
DX: E53.8 Deficiency of other specified B group vitamins (principal); E55.9 Vitamin D deficiency, unspecified; I10 Essential (primary) hypertension; E78.5 Hyperlipidemia, unspecified
CPT/HCPCS: 80053; 80061; 82306; 82607

== ENCOUNTER 2024-12-05 10:19 | Outpatient (CLI) | payer OTHER, SELFPAY ==
[2024-12-05 14:36] LABS: Microscopic, Urine URINE MICROSCOPIC (MICROSCOPIC)
[2024-12-05 15:34] LABS: Hematocrit 44.1 % (37.0-47.0); Hemoglobin 14.2 g/dL (12.2-16.2); Immature Granulocytes % 0.4 %; Mean Corpuscular HGB Conc 32.2 g/dL (31.8-35.4); Mean Corpuscular Hemoglobin 28.7 pg (27.0-31.2); Mean Corpuscular Volume 89.1 fl (81-99); Nucleated Red Blood Cells % 0 %; Platelet Count 291 K/mm3 (142-424); Red Blood Count 4.95 M/mm3 (4.20-5.40); Red Cell Distribution Width-SD 42.6 fL; White Blood Count 5.5 K/mm3 (4.8-10.8)
[2024-12-05 16:11] LABS: Albumin Level 4.9 g/dl (3.5-5.0); Chloride 98 mmol/L (98-107); Potassium 4.6 mmoL/L (3.5-5.1); Sodium 134 mmol/L (136-145)
[2024-12-05 16:13] LABS: Blood Urea Nitrogen 10 mg/dl (7-17); Creatinine,Serum 0.70 mg/dl (0.52-1.04); Estimated Glomerular Filt Rate 88 ml/min (>60); GFR (African American) 107 ML/MIN (>60)
[2024-12-05 16:14] LABS: Alanine Aminotransferase 55 U/L (12-78); Albumin/Globulin Ratio 1.5 (1.1-1.8); Alkaline Phosphatase 117 U/L (38-126); Anion Gap 13.6 mEq/L (5-15); Aspartate Amino Transferase 60 U/L (14-36); Bilirubin,Total 0.8 mg/dl (0.2-1.3); Calcium 9.5 mg/dl (8.4-10.2); Carbon Dioxide 27 mmol/L (22.0-30.0); Cholesterol 214 mg/dl (140-200); Globulin 3.3 g/dL (1.3-3.2); Glucose 92 mg/dl (74-100); HDL Cholesterol 43 mg/dl (40-60); Total Protein,Serum 8.2 g/dl (6.3-8.2); Triglycerides 155 mg/dl (30-150)
[2024-12-05 16:26] LABS: 25-OH Vitamin D, Total 42.7 ng/mL (30-100)
[2024-12-05 16:28] LABS: Free T4 (Free Thyroxine) 1.30 ng/dl (0.78-2.19)
[2024-12-05 16:46] LABS: Thyroid Stimulating Hormone 2.46 uIU/mL (0.465-4.68)
[2024-12-05 17:46] LABS: Bilirubin,Urine Negative (Negative); Color,Urine YELLOW (Yellow); Glucose,Urine (UA) Negative (Negative); Ketones,Urine Negative (Negative); Leukocyte Esterase,Urine Negative (Negative); PH,Urine 6.5 (5.0-8.5); Protein,Urine Negative (Negative); Specific Gravity, Urine 1.015 (1.005-1.030); Urobilinogen,Urine 0.2 EU/dl (0.2)
[2024-12-05 18:28] LABS: Squamous Epithelial Cell,Urine Occasional #/hpf (0-5); WBC,Urine Occasional #/hpf (0-3)
[2024-12-05 18:29] LABS: Bacteria,Urine Trace /lpf
== END 2024-12-05 23:59 | disposition home or self-care (01) ==
LOC: LAB.DROPOF 12-06 13:53
PROVIDERS: PCP Nurse Practitioner Family; Visit Provider Nurse Practitioner Family
DX: G47.33 Obstructive sleep apnea (adult) (pediatric) (principal); R41.3 Other amnesia; E53.8 Deficiency of other specified B group vitamins; E78.5 Hyperlipidemia, unspecified; E55.9 Vitamin D deficiency, unspecified; E66.9 Obesity, unspecified; I10 Essential (primary) hypertension; Z12.11 Encounter for screening for malignant neoplasm of colon; Z12.31 Encounter for screening mammogram for malignant neoplasm of breast; Z12.4 Encounter for screening for malignant neoplasm of cervix
CPT/HCPCS: 80053; 80061; 81001; 82306; 84156; 84439; 84443; 85025; 87086

== ENCOUNTER 2024-12-13 16:59 | Outpatient (CLI) | payer OTHER, SELFPAY ==
--- NOTE | 2024-12-13 17:00 | MM_ITS ---
PROCEDURE INFORMATION: Exam: Bilateral Screening 3D Mammography Exam date and time: 12/13/2024 5:05 PM Age: 49 years old Clinical indication: Screening/baseline. Her maternal aunt had breast cancer. TECHNIQUE: Imaging protocol: Bilateral Screening tomosynthesis and 2D mammography including computer-aided detection (CAD) when performed. COMPARISON: No relevant prior studies available. FINDINGS: MAMMOGRAPHY: Breast composition: The breasts are heterogeneously dense, which may obscure small masses. Mass: 1.0 cm mass with architectural distortion in the left breast at 12 o'clock middle 3rd, 5-7 cm from the nipple, CC image [id number] frame 44 and MLO image 1106 for frame 51. Scattered bilateral oval circumscribed, probably obscured masses, most noticeable in the right upper outer quadrant middle 3rd, 6-9 cm from the nipple, CC image [id number] frame 48 and MLO image 1372 frame 37. Architectural distortion: See above. Calcifications: No suspicious calcifications. Asymmetric density: None. Skin thickening: None. Axillary adenopathy: None. IMPRESSION: Patient will be recalled for left diagnostic mammography with spot compression in CC and MLO and bilateral sonography for further evaluation of a left breast mass with architectural distortion and bilateral nodular pattern. ASSESSMENT: BI-RADS Category 0: Incomplete: Need Additional Imaging Evaluation.
== END 2024-12-13 23:59 | disposition home or self-care (01) ==
LOC: RAD 17:04
PROVIDERS: PCP Nurse Practitioner Family; Referring Provider Nurse Practitioner Family; Visit Provider Nurse Practitioner Family
DX: E53.8 Deficiency of other specified B group vitamins (principal); E78.5 Hyperlipidemia, unspecified; E55.9 Vitamin D deficiency, unspecified; E66.9 Obesity, unspecified; I10 Essential (primary) hypertension; Z12.11 Encounter for screening for malignant neoplasm of colon; Z12.4 Encounter for screening for malignant neoplasm of cervix; Z12.31 Encounter for screening mammogram for malignant neoplasm of breast; R92.333 Mammographic heterogeneous density, bilateral breasts; Z80.3 Family history of malignant neoplasm of breast
CPT/HCPCS: 77063; 77067

== ENCOUNTER 2024-12-27 14:51 | Outpatient (CLI) | payer OTHER, SELFPAY ==
--- NOTE | 2024-12-27 15:00 | MM_ITS ---
PROCEDURE INFORMATION: Exam: US Right Breast, Complete US Left Breast, Complete MG Left Diagnostic Breast Tomosynthesis Exam date and time: 12/27/2024 3:19 PM Age: 49 years old Clinical indication: Patient recalled on the basis of a screening mammogram for further evaluation; Left breast; mass and architectural distortion . Bilateral nodularity on screening mammography TECHNIQUE: Imaging protocol: Complete ultrasound of all four quadrants of the right breast and the retroareolar regions, including ultrasound of the axilla when performed. Complete ultrasound of all four quadrants of the left breast and the retroareolar regions, including ultrasound of the axilla when performed. Left Diagnostic tomosynthesis and 2D mammography including computer-aided detection (CAD) when performed. Unilateral or bilateral exam. COMPARISON: MG MM DIG SCREENING MAMM BI W/CAD 12/13/2024 5:05 PM FINDINGS: MAMMOGRAPHY: Breast composition: The breasts are heterogeneously dense, which may obscure small masses. Breast mammogram findings: Digital diagnostic spot compression views of the left breast and 90 degree lateral view of the left breast demonstrate a persistent round 1.0 cm mass with surrounding architectural distortion. ULTRASOUND: Breast ultrasound findings: Sonographic images of both breasts including the retroareolar region, all 4 quadrants and the axilla were obtained. In the right 9 o'clock axis 5 cm from the nipple is a suggestion of a vertically oriented irregularly marginated hypoechoic solid mass. It measures 0.4 x 0.3 x 0.3 cm. The finding is not well seen on mammography. Scattered and clustered subcentimeter cysts are present. There is no sonographic evidence of architectural distortion in the left breast. No skin thickening or axillary adenopathy. IMPRESSION: 1. Architectural distortion surrounding a 1 cm round mass in the left 12 o'clock axis only well seen on mammography. Stereotactic core biopsy is recommended for further evaluation. 2. Sonographically detected irregular subcentimeter mass in the right 9 o'clock axis. Ultrasound-guided core biopsy is recommended for further evaluation ASSESSMENT: BI-RADS Category 4: Suspicious.
== END 2024-12-27 23:59 | disposition home or self-care (01) ==
LOC: RAD 14:52
PROVIDERS: PCP Nurse Practitioner Family; Visit Provider Nurse Practitioner Family
DX: N63.15 Unspecified lump in the right breast, overlapping quadrants (principal); N63.25 Unspecified lump in the left breast, overlapping quadrants; R92.331 Mammographic heterogeneous density, right breast; R92.332 Mammographic heterogeneous density, left breast; R92.8 Other abnormal and inconclusive findings on diagnostic imaging of breast
CPT/HCPCS: 76641; 77061; 77065; G0279

== ENCOUNTER 2025-01-28 08:32 | Outpatient (CLI) | payer OTHER, SELFPAY ==
--- NOTE | 2025-01-28 10:00 | US_ITS ---
FINAL REPORT CLINICAL HISTORY: right breast mass -- MAMMOTOME -- DR.ALEX KRAFT FINDINGS: ULTRASOUND-GUIDED RIGHT BREAST CORE BIOPSY TECHNIQUE: Limited images were obtained to localize region of interest. The right breast was prepped in a routine sterile fashion and locally anesthetized with 1% lidocaine. Standard written informed consent was obtained. There is small shadowing focus was identified within the right breast at 9:00. This was targeted for biopsy. An 11-gauge vacuum assisted hand-held device was utilized. The needle was positioned posterior to the lesion. Multiple vacuum assisted core samples were obtained. The lesion was noted to be significantly smaller following biopsy. A biopsy marker clip was deployed in satisfactory position. Postbiopsy mammogram showed postbiopsy changes with clip in satisfactory position. Procedure was well tolerated . CONCLUSION: 1. Technically successful ultrasound guided vacuum assisted core biopsy of right breast lesion as above. 2. Biopsy marker clip deployed Given benign findings on histopathology without evidence of atypia, short-term 6 month mammographic and sonographic follow-up is recommended as part of normal post benign biopsy surveillance. If findings are stable at that time, patient may resume screening mammography of the right breast. However management could be altered pending biopsy results of the left breast. Authenticated and ERN
--- NOTE | 2025-01-28 10:35 | MM_ITS ---
FINAL REPORT CLINICAL HISTORY: CLIP PLACEMENT / S/P BIOPSY FINDINGS: MAMMOGRAM RIGHT TECHNIQUE: Standard digital 2-D views COMPARISON: 12/27/2024 DENSITY: There are scattered areas of fibroglandular density FINDINGS: Post biopsy marker clip is noted to be in satisfactory position. Postbiopsy changes are noted. IMPRESSION: Biopsy marker clip in good position ASSESSMENT: A post-procedure mammogram is used to confirm the position and deployment of a breast tissue marker after a biopsy RECOMMENDATION: Given benign findings, six-month mammographic and sonographic follow-up of right breast is recommended as part of normal post benign biopsy surveillance. However management could change pending findings of left breast biopsy. Authenticated and ERN
== END 2025-01-28 23:59 | disposition home or self-care (01) ==
LOC: RAD 08:33
PROVIDERS: PCP Nurse Practitioner Family; Visit Provider Nurse Practitioner Family
DX: N63.10 Unspecified lump in the right breast, unspecified quadrant (principal)
CPT/HCPCS: 19083; 77065; C2618

== ENCOUNTER 2025-02-08 10:28 | Outpatient (CLI) | payer OTHER, SELFPAY ==
[2025-02-08] MEDS: HYDROCODONE/APAP 5/325 MG TABLET 1 TAB PO (10:40)
--- NOTE | 2025-02-08 10:51 | MM_ITS ---
FINAL REPORT CLINICAL HISTORY: lt breast clip placement FINDINGS: MAMMOGRAM LEFT 2D TECHNIQUE: Standard digital 2D views COMPARISON: 12/27/2024 DENSITY: There are scattered areas of fibroglandular density FINDINGS: Post biopsy marker clips are noted in satisfactory position. Postbiopsy changes are noted. IMPRESSION: Biopsy marker clip in good position ASSESSMENT: Post procedure mammogram for marker placement RECOMMENDATION: Pending histopathology evaluation Authenticated and ERN
--- NOTE | 2025-02-08 11:00 | MM_ITS ---
FINAL REPORT CLINICAL HISTORY: left breast density FINDINGS: STEREOTACTIC GUIDED LEFT BREAST BIOPSY, CLIP PLACEMENT, AND POST BIOPSY MAMMOGRAM Indication: Abnormal mammogram/density/mass Findings: The stereotactic guided breast biopsy procedure was explained in detail to the patient including potential risk and benefits. The patient voiced an understanding of the procedure, was given an opportunity to ask questions, after which informed consent was obtained. The patient was positioned upon the stereotactic unit in the supine position. The breast was prepped in the usual sterile fashion. An area of architectural distortion was present in the left breast. There was a calcification used for targeting within the central area of distortion. It should be noted that the calcification was no longer on postbiopsy mammogram indicating successful sampling of the targeted region. A superior to inferior approach was utilized. Subcutaneous soft tissues were anesthetized with lidocaine with epinephrine. Subsequently, with intermittent stereotactic guidance, the stereotactic biopsy needle was advanced into the breast in the region of the mammographic abnormality corresponding to recent diagnostic mammogram. Multiple vacuum assisted core samples were obtained. Sampling was thought to be adequate and the biopsy clip marker was deployed in the region of biopsy. Additional imaging as detailed below was performed. Post procedure routine CC and MLO view mammogram: Post biopsy changes. Biopsy marker clip noted to be in the appropriate location. Patient tolerated the procedure well. No immediate complications. IMPRESSION: 1. Technically successful stereotactic guided biopsy of architectural distortion with associated solitary calcification for targeting 2. Biopsy marker clip deployed 3. Post biopsy mammogram obtained as above Authenticated and ERN
[2025-02-08] MEDS: RAD-SODIUM CHLORIDE 0.9% 250ML BAG 100 ML IV (11:58)
[2025-02-08] MEDS: LIDOCAINE 1% W/EPI 1:100,000 20ML VIAL IJ (11:59)
== END 2025-02-08 23:59 | disposition home or self-care (01) ==
LOC: RAD 10:28
PROVIDERS: PCP Nurse Practitioner Family; Visit Provider Nurse Practitioner Family
DX: N63.20 Unspecified lump in the left breast, unspecified quadrant (principal); N63.10 Unspecified lump in the right breast, unspecified quadrant; R92.8 Other abnormal and inconclusive findings on diagnostic imaging of breast
CPT/HCPCS: 19081; 77065; J2004; J7050